=== PATIENT | male | born 1950 | race Caucasian/White ===

== ENCOUNTER 2020-08-30 10:18 | Day surgery (SDC) | payer MEDICARE ==
[~2020-08-30] VITALS: Ht 172.7 cm; Wt 72.7 kg
[2020-08-30 10:57] VITALS: BP 136/73
[2020-08-30] MEDS ORDERED: ATOR40TA PO (11:11)
[2020-08-30] MEDS ORDERED: ALLO100T30 PO (11:11)
[2020-08-30] MEDS ORDERED: MESA1.2T PO (11:11)
[2020-08-30] MEDS ORDERED: PANT40TA6 PO (11:11)
[2020-08-30] MEDS ORDERED: DICY10CA3 PO (11:11)
[2020-08-30] MEDS ORDERED: LOSA25TA25 PO (11:11)
[2020-08-30] MEDS ORDERED: CARI-389 PO (11:11)
[2020-08-30] MEDS ORDERED: MERC50TA17 PO (11:11)
[2020-08-30] MEDS ORDERED: GABA600T7 PO (11:11)
[2020-08-30 11:29] LABS: BASOPHILS % (AUTO) 1 % (0-1); EOSINOPHILS % (AUTO) 1 % (1-7); LYMPHOCYTES % (AUTO) 14 % (22-44); MEAN CORPUSCULAR HEMOGLOBIN 36.7 pg (27.5-34.5); MEAN CORPUSCULAR HGB CONC 35.1 g/dL (33.2-36.2); MEAN PLATELET VOLUME 8.3 fL (7.4-10.4); MONOCYTES % (AUTO) 10 % (2-9); NEUTROPHILS % (AUTO) 74 % (42-75); PLATELET COUNT 194 x10^3/uL (130-400); RED BLOOD COUNT 4.05 x10^6/uL (4.38-5.82); RED CELL DISTRIBUTION WIDTH 13.9 % (9.4-14.8)
[2020-08-30 11:31] LABS: MD NO
[2020-08-30 11:38] LABS: ANION GAP 6 mmol/L (5-15); CALCIUM 9.4 mg/dL (8.5-10.1); CHLORIDE 110 mmol/L (98-107); CREATININE 1.17 mg/dL (0.7-1.3)
[2020-08-30 11:41] LABS: INTERNATIONAL NORMALIZED RATIO 1.05 (0.93-1.1); PROTHROMBIN TIME 11.2 Seconds (9.6-11.5)
[2020-08-30] MEDS ORDERED: MIDAZOLAM 1 MG/ML, 5ML ONE ×2 (12:16→12:51)
[2020-08-30] MEDS ORDERED: FENTANYL PF 100 MCG/2ML ONE ×2 (12:16→12:51)
[2020-08-30] MEDS ORDERED: VERAPAMIL 2.5 MG/ML, 2ML ONE (12:16)
[2020-08-30] MEDS ORDERED: LIDOCAINE-MPF 1%, 5ML ONE (12:17)
[2020-08-30] MEDS ORDERED: BIVALIRUDIN 250 MG ONE (12:17)
[2020-08-30] MEDS ORDERED: HEPARIN 1,000 UNITS/ML, 10ML ONE (12:17)
[2020-08-30] MEDS ORDERED: SODIUM CHLORIDE 0.9% 1,000 ML IV SCH (14:00)
== END 2020-08-30 15:38 | disposition home or self-care (01) ==
LOC: CACL 10:18
PROVIDERS: ATTEND Internal Medicine Cardiovascular Disease
DX: R94.39 Abnormal result of other cardiovascular function study (principal); I25.118 Atherosclerotic heart disease of native coronary artery with other forms of angina pectoris; I25.83 Coronary atherosclerosis due to lipid rich plaque; I10 Essential (primary) hypertension; E78.5 Hyperlipidemia, unspecified; Z79.01 Long term (current) use of anticoagulants; Z88.2 Allergy status to sulfonamides
CPT/HCPCS: 36415; 80048; 85025; 85610; 85730; 93458; 99156; 99157; C1769; C1894; J1644; J2250; J3010; Q9967; J0583